=== PATIENT | female | born 1970 | race Caucasian/White ===

== ENCOUNTER 2016-10-18 11:05 | Inpatient (IN) | payer OTHER ==
--- NOTE | ~2016-10-18 | PN ---
Unit #: [id number] #: [id number] Patient: SHANKAR ORTIZ [id number] [facility] [address] [place] [address] [id number] MR#: [id number] NAME: SHANKAR ORTIZ ROOM: P123 Age: 45 Sex: F Admission Date: 10/18/2016 : 1970 Attending Physician: Alec Wahl M.D. Admitting Physician: Alec Wahl M.D. Primary Care Physician: Primary Care Physician Iliana PRADHAN NOTES DATE OF SERVICE: 10/21/2016 SUBJECTIVE This patient was seen and assessed on 10/21/2016. Upon today's assessment, the patient was found at bed. She appeared in no apparent physical distress and states that she is "fine." She still appears hyper focused on returning home to her mother and dad stating that she needed to help her mom care for her dad and she thought like she was not described it as not feeling like what she needed to be doing as their daughter. She states that she feels much better than yesterday and her anxiety is not as elevated as well as depression. She denies suicidal or homicidal ideations at this time and verbalized no plan or intent. She denied auditory or visual hallucinations and no overt symptoms of psychosis was noted at this time. Dictated by... Becca Molina APRN for Sayra Bolaños/jerzy TD: 10/23/2016 23:17 JOB #: [id number] [facility] PROGRESS NOTES Page 1 of 1 X BECCA MOLINA PROGRESS NOTE
--- NOTE | ~2016-10-18 | PN ---
Unit #: [id number] #: [id number] Patient: SHANKAR ORTIZ [id number] [facility] [address] [place] [address] [id number] MR#: [id number] NAME: SHANKAR ORTIZ ROOM: [facility] Age: 45 Sex: F Admission Date: 10/18/2016 : 1970 Attending Physician: Alec Wahl M.D. Admitting Physician: Alec Wahl M.D. Primary Care Physician: Primary Care Physician No BETYCE PROGRESS NOTES DATE October 20, [address] Alec Wahl at [facility] DISCUSSION Upon today's assessment the patient was found abed, and reports that she is "fine." She states that her anxiety, at this time, is "manageable" and currently denies suicidal or homicidal ideation, and verbalizes no plan or intent. She appears hyper-focused on returning home to her dad, to whom she states has dementia and reports that she feels like she needs to be there for her family and to help her mother care for her dad at this time. She reports medication compliance and has no further complaints at this time. Dictated by... ISABELL Desai TD: 10/24/2016 05:39 JOB #: [id number] [facility] PROGRESS NOTES Page 1 of 1 X RALPH MOLINA PROGRESS NOTE
--- NOTE | ~2016-10-18 | PA ---
Unit #: [id number] #: [id number] Patient: CATALINA ORTIZ [id number] [facility] [address] [place] [address] [id number] I MR#: [id number] NAME: CATALINA ORTIZ ROOM: [facility] Age: 45 Sex: F Admission Date: 10/18/2016 : 1970 Date of Assessment: Attending Physician: Alec Wahl M.D. Admitting Physician: Alec Wahl M.D. PSYCHIATRIC ASSESSMENT DATE OF ASSESSMENT 10/19/2016. INFORMANTS The patient, partially reliable; [facility], reliable; [facility], reliable. CHIEF COMPLAINT Severe anxiety and suicidal ideation. HISTORY OF PRESENT ILLNESS Catalina Valdes is a 45-year-old woman, well known to me from previous admissions for intellectual impairment, and mood disorder. The patient reports that she has difficulty coping with her parents, both of whom who are in their 90s, and have dementia. She reports a panic attack "at least once a day" and says that she had feelings of worthless, no good and "not wanting to live." She was unable to contract for safety in the emergency room and [facility]. PAST PSYCHIATRIC HISTORY Multiple admissions to this facility as well as at [facility]. She is on disability for chronic mental illness. FAMILY PSYCHIATRIC HISTORY The patient's sister has a drug problem and her father was reportedly an alcoholic in his younger age. SOCIAL HISTORY The patient lives in a home with her elderly parents, who both suffer from dementia. She is on long-term disability and unemployed and occasionally takes college classes at [employer]. PAST MEDICAL HISTORY Obesity, arthritis, fibromyalgia and cerebral palsy. MEDICATIONS Please see MAR. ALLERGIES Morphine, codeine and amoxicillin. SUBSTANCE ABUSE HISTORY Unit #: [id number] #: [id number] Patient: CATALINA ORTIZ The patient dabbles with alcohol, but never drinks to excess and smokes a half to 1-1/2 pack daily. MENTAL STATUS EXAMINATION The patient presented as a disheveled woman, who is mildly disheveled, but cooperative with the examination. Speech was spontaneous, mildly disarticulate, but otherwise easily understood. Musculoskeletal examination was calm. Her mood was irritable with a congruent affect. She was alert and fully oriented. Memory and concentration were intact. Thought processes were logical, but concrete. There was no evidence of psychosis, paranoia, or delusional beliefs. She now denied suicidal ideation, intent, or plan and stated that she disliked the inpatient milieu at the hospital. Insight and judgment were fair. Fund of knowledge and abstraction were only fair. ASSETS AND LIABILITIES The patient knows local resources and presents voluntarily for treatment. Liabilities include poor coping skills and stress at home. ADMITTING DIAGNOSES AXIS I: Major depression, severe, recurrent. AXIS II: Borderline personality disorder. AXIS III: Obesity, osteoarthritis, fibromyalgia, cerebral palsy and hypothyroidism. AXIS IV: AXIS V: PSYCHIATRIC PLAN The patient was admitted and placed on her previous medications. The patient is now insisting that she be discharged immediately, although I explained to her that due to the distance and the hospital's ability to make transportation arrangements, this would not be possible immediately. She was somewhat irritable and perseverative on this matter, but I reiterated to her that she was admitted due to her report of the severity of her symptoms and that we had a responsibility for her safety to maintain hospitalization. At this point, I am going to continue her current treatment unchanged, and expect her to discharge after the holiday weekend with followup through community mental health. Dictated by... Alec Wahl M.D. [facility]/jerzy TD: 11/03/2016 02:18 JOB #: [id number] Unit #: [id number] #: [id number] Patient: CATALINA ORTIZ PSYCHIATRIC ASSESSMENT Page 1 of 1 X Alec Wahl MD X PSYCHIATRIC ASSESSMENT
--- NOTE | ~2016-10-18 | HP ---
Unit #: [id number] #: [id number] Patient: CATALINA ORTIZ [id number] [place] [address] [id number] MR#: [id number] NAME: CATALINA ORTIZ ROOM: P123 Age: 45 Sex: F Admission Date: 10/18/2016 : 1970 Attending Physician: Alec Wahl M.D. Admitting Physician: Alec Wahl M.D. Primary Care Physician: Primary Care Physician No HISTORY AND PHYSICAL HISTORY OF PRESENT ILLNESS Catalina is a 45 year old admitted to [address] [place] [address] with anxiety, depression and verbalizing wanting to hurt herself. She has had other admissions to this facility for the same. PAST MEDICAL HISTORY 1. Morbid obesity. 2. CP. 3. Hypothyroidism. PAST SURGICAL HISTORY Cholecystectomy. ALLERGIES Penicillin, codeine, morphine. SOCIAL HISTORY Smokes 1 pack per day. Drinks alcohol on occasion. Denies illicit drug use. FAMILY HISTORY Medically noncontributory. REVIEW OF SYSTEMS CONSTITUTIONAL: No fever or chills. HEENT: Denies any sore throat, ear pain or runny nose. CARDIOVASCULAR: Denies chest pain, irregular heart rhythm or palpitations. CHEST: Denies shortness of breath or cough. No hemoptysis. GASTROINTESTINAL: Denies nausea, vomiting, diarrhea or chronic constipation. ENDOCRINE: Denies history of increased thirst or urination. No recent significant weight loss or gain. GENITOURINARY: Denies dysuria, frequency, or hematuria. SKIN: Denies any rashes. HEMATOLOGIC: Denies history of increased bleeding or bruising. MUSCULOSKELETAL: Denies any hot, swollen joints. No generalized muscle pain. NEUROLOGIC: Denies problems with vision or speech. No frequent, severe headaches. No numbness, tingling or weakness in any extremities. Denies loss of bladder or bowel control. CURRENT MEDICATIONS 1. Doxepin 10 mg q.h.s. 2. Desyrel 100 mg q.h.s. Unit #: [id number] #: [id number] Patient: CATALINA ORTIZ 3. Risperdal 1 mg q.h.s. 4. BuSpar 30 mg b.i.d. 5. Vistaril 50 mg b.i.d. 6. Ultram 50 mg q.a.m. 7. Prozac 20 mg daily. 8. Synthroid 0.112 mg daily. 9. Lorazepam p.r.n. 10. Milk of Magnesia p.r.n. 11. Maalox p.r.n. 12. Tylenol p.r.n. PHYSICAL EXAMINATION GENERAL: Alert, morbidly obese, in no apparent distress. VITAL SIGNS: Blood pressure 124/78, heart rate 90, respirations 16, temperature 98.6. WEIGHT: 215. HEIGHT: 5 feet 1 inch. SKIN: Warm and dry without rash or lesion. HEENT: Normocephalic. TMs not viewed. Oral and nasal passages clear. Conjunctivae clear. PERRLA. EOMs intact. NECK: Supple without lymphadenopathy or thyromegaly. HEART: Regular rate and rhythm without murmur. LUNGS: Clear. ABDOMEN: Soft, nontender. : Not done. EXTREMITIES: No evidence of cyanosis, clubbing or edema. Moves all without focal deficit. NEUROLOGICAL: Unable to complete extended exam. She does move all extremities without focal deficit. Hand online marketing strategist is equal. Gait not observed. IMPRESSION Psychiatric admission. RECOMMENDATIONS PSYCHIATRIC: Per psychiatrist. MEDICAL: 1. See no contraindication to participate in facility's activities. 2. Continue Synthroid. Check TSH. MEDICAL PROGNOSIS Good. MEDICAL CONDITION Stable. Dictated by... Sara Monaco P.A.-C. for Sayra Tamayo/cal TD: 10/19/2016 19:50 JOB #: [id number] Unit #: [id number] #: [id number] Patient: CATALINA ORTIZ HISTORY AND PHYSICAL Page 1 of 1 X Sara Monaco X HISTORY AND PHYSICAL
--- NOTE | ~2016-10-18 | DS ---
Unit #: [id number] #: [id number] Patient: CATALINA ORTIZ [id number] [facility] [address] [place] [address] [id number] I MR#: [id number] NAME: CATALINA ORTIZ ROOM: [facility] Age: 45 Sex: F Admission Date: 10/18/2016 : 1970 Discharge Date: 10/22/2016 Attending Physician: Aelc Wahl M.D. Primary Care Physician: Primary Care Physician No DISCHARGE SUMMARY REASON FOR ADMISSION Catalina is a 45-year-old woman with a history of mood disorder, cerebral palsy, and borderline personality disorder. She came to the emergency room in [place] reporting increasing stress dealing with her elderly parents and could not contract for safety. She was transferred to [facility]. LABORATORY DATA Please see hospital chart. HOSPITAL COURSE The patient was admitted and placed on suicide precautions. Her home medications were restarted unchanged. The morning of my initial assessment, the patient insisted that she was "fine now" and that she had been "just stressed out" in the emergency room. She demanded immediate discharge back to [place], but due to our transportation arrangements, we were unable to accomplish this and I felt that it was inappropriate given her presentation in the emergency room. She was quite oppositional about this, concretely demanding that we do "something about it" and constantly calling relatives and her parents to see if they "come and get me." I once again explained to her that since she arrived on a holiday weekend, she would probably need to wait until after the weekend for us to arrange transportation to return to [place]. The patient was disappointed and oppositional about this, but did not cause any trouble on the unit, and was compliant with medications. On the date of discharge, when transportation had been arranged, she was discharged in stable condition. DISCHARGE DIAGNOSES AXIS I: Major depression, recurrent. AXIS II: Borderline personality disorder. AXIS III: Obesity, osteoarthritis, fibromyalgia, cerebral palsy and hypothyroidism. AXIS IV: AXIS V: DISCHARGE INSTRUCTIONS Follow up with on license of [facility] mental health and primary care physician. DISCHARGE MEDICATIONS The patient was not given prescriptions as all of her medications were unchanged. She was to continue on the following regimen; Prozac 20 mg daily for depression, Risperdal 1 mg at bedtime for mood stability, BuSpar Unit #: [id number] #: [id number] Patient: PRESTON ORTIZT 30 mg b.i.d. for anxiety, Sinequan 10 mg at bedtime for anxiety, trazodone 100 mg at bedtime for insomnia, Vistaril 50 mg b.i.d. as needed for anxiety, Ativan 2 mg t.i.d. for anxiety. Primary care medicines included Synthroid 112 mcg daily for hypothyroidism and Ultram 50 mg every morning as needed for pain. DISCHARGE CONDITION Improved. PROGNOSIS Fair. DIET AND ACTIVITY Per primary care doctor. Dictated by... Alec Wahl M.D. TARA/jerzy TD: 11/03/2016 01:59 JOB #: [id number] DISCHARGE SUMMARY Page 1 of 1 X Alec Wahl MD X DISCHARGE SUMMARY
[2016-10-19 10:05] LABS: ALBUMIN SERUM 4.2 g/dL (3.5-5.0); BILIRUBIN,TOTAL 0.7 mg/dL (0.2-2.0); BUN/CREATININE RATIO 23.33; CREATININE SERUM 0.6 mg/dL (0.6-1.4); GLOM FILT RATE Estimated 108.5 mL/min (>60); POTASSIUM 3.9 mmol/L (3.5-5.1); PROTEIN TOTAL SERUM 7.4 g/dL (6.0-8.3)
[2016-10-19 10:06] LABS: THYROID STIMULATING HORMONE 5.05 uIU/ml (0.34-5.60)
[2016-10-19 10:11] LABS: BASOPHIL% 0.3 % (0-2.5); EOSINOPHIL# 0.1 X10e3 (0-0.7); EOSINOPHIL% 0.6 % (0.0-7.0); HEMATOCRIT 46.6 % (35.0-45.0); HEMOGLOBIN 15.8 gm/dL (12.0-16.0); LYMPHOCYTE# 2.7 X10e3 (1.0-3.5); LYMPHOCYTE% 25.6 % (17.0-45.0); MEAN CELL VOLUME 85.7 FL (83-96); MEAN CORPUSCULAR HEMOGLOBIN 29.1 PG (28-34); MEAN PLATELET VOLUME 8.5 FL (6.5-11.5); MONOCYTE# 0.5 X10e3 (0-1.0); NEUTROPHIL# 7.3 X10e3 (1.5-7.1); NEUTROPHIL% 68.5 % (40-75); PLATELET COUNT 264 X10e3 (140-420); RED BLOOD COUNT 5.44 X10e (3.90-5.30); RED CELL DISTRIBUTION WIDTH 13.5 % (11.0-15.5); WHITE BLOOD COUNT 10.7 X10e3 (4.0-10.5)
[2016-10-19 10:13] LABS: FREE THYROXIN (T4) 0.47 ng/dL (0.58-1.64)
[2016-10-19 10:24] LABS: DIFF IND NO
== END 2016-10-22 15:00 | disposition home or self-care (01) | DRG 885 ==
LOC: P1S 15:45
PROVIDERS: Psychiatry & Neurology Psychiatry
DX: F33.2 Major depressive disorder, recurrent severe without psychotic features (principal); E03.9 Hypothyroidism, unspecified; F41.9 Anxiety disorder, unspecified; F60.3 Borderline personality disorder; E66.9 Obesity, unspecified; M19.90 Unspecified osteoarthritis, unspecified site; M79.7 Fibromyalgia; G80.9 Cerebral palsy, unspecified
CPT/HCPCS: 80053; 84439; 84443; 85025